=== PATIENT | male | born 1945 | race Caucasian/White ===

== ENCOUNTER 2020-02-25 09:39 | Outpatient (CLI) | payer MEDICARE, SELFPAY ==
--- NOTE | ~2020-02-25 | XR_ITS ---
XR hip RT min 3V w AP pelvis 02/25/2020 10:03 Indication: Right hip pain Procedure: 5 views right hip including AP pelvis Comparison: No prior studies for comparison. Findings: There is mild osteoarthritis of the right hip. There is a small bone island in the right il ium. There is mild lower lumbar spondylosis. Sacral foramen are symmetric. Pelvic rings are intact. Impression: 1: Mild osteoarthritis of the right hip. Reviewed, dictated and finalized at location B. Impression: 1: Mild osteoarthritis of the right hip.
== END 2020-02-25 09:40 | disposition home or self-care (01) ==
PROVIDERS: PCP Family Medicine; Visit Provider Family Medicine
DX: M16.11 Unilateral primary osteoarthritis, right hip (principal)
CPT/HCPCS: 73502

== ENCOUNTER 2022-04-08 08:29 | Outpatient (CLI) | payer MEDICARE, SELFPAY ==
[2022-04-08 19:29] LABS: Alanine Aminotransferase 26 U/L (6-50); Albumin Level 4.5 g/dL (3.5-5.1); Alkaline Phosphatase 78 U/L (38-126); Anion Gap 7 mmol/L (8-16); Aspartate Amino Transferase 36 U/L (17-59); Bilirubin,Total 0.8 mg/dL (0.2-1.3); Blood Urea Nitrogen 14 mg/dL (9-20); Calcium 9.4 mg/dL (8.4-10.2); Carbon Dioxide 31 mmol/L (22-30); Chloride 101 mmol/L (98-107); Cholesterol 164 mg/dL (0-200); Estimated Glomerular Filt Rate > 60; Glucose 110 mg/dL (65-110); HDL Direct 48 mg/dL; Potassium 4.7 mmol/L (3.4-5.0); Sodium 139 mmol/L (137-145); Triglycerides 132 mg/dL (<150)
[2022-04-08 19:40] LABS: LDL Cholesterol Direct 78 mg/dL
[2022-04-08 19:46] LABS: Vitamin D 25 Hydroxy 47.9 ng/mL
[2022-04-08 19:52] LABS: Prostate Specific Antigen 4.8 ng/mL (< OR = 4.0)
== END 2022-04-08 08:30 | disposition home or self-care (01) ==
LOC: ANHGOSHLAB 08:31
PROVIDERS: PCP Family Medicine; Visit Provider Family Medicine
DX: R20.2 Paresthesia of skin (principal); R20.0 Anesthesia of skin; Z13.29 Encounter for screening for other suspected endocrine disorder; Z12.5 Encounter for screening for malignant neoplasm of prostate; E78.5 Hyperlipidemia, unspecified; Z79.899 Other long term (current) drug therapy; E55.9 Vitamin D deficiency, unspecified
CPT/HCPCS: 36415; 80053; 80061; 82306; 84153; 84443; G0103

== ENCOUNTER → 2023-08-16 15:27 | Outpatient (CLI) | payer MEDICARE, SELFPAY ==
--- NOTE | ~2023-08-16 | XR_ITS ---
XR chest 2V DATE: 08/16/2023 15:38 INDICATION: Acute upper respiratory infection TECHNIQUE: PA and lateral views COMPARISON: 02/13/2014 CT chest high resolution scan 07/24/2009 two-view chest FINDINGS: Bilateral calcified pleural plaques consistent with prior asbestos exposure are again noted . There is infiltrate and/atelectasis in the lateral left mid-upper lung and left lower lung. Probable mild discoid scarring or atelectasis in the lung bases. Mild pleural thickening or pleural effusion and the lower right chest. Normal heart size. No hilar or mediastinal enlargement. No pneumothorax. 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 IMPRESSION: Bilateral calcified pleural plaques Mild infiltrate and/or atelectasis in the left mid and both lower lung zones Reviewed, dictated and finalized at location B. UATE NURSE
== END ==
PROVIDERS: PCP Family Medicine; Visit Provider Family Medicine
DX: J06.9 Acute upper respiratory infection, unspecified (principal); R91.8 Other nonspecific abnormal finding of lung field
CPT/HCPCS: 71046

== ENCOUNTER 2023-08-16 21:46 | Emergency (ER) | payer MEDICARE, SELFPAY ==
[2023-08-16 21:47] VITALS: BP 154/74; PULSE 104; RESP 20; TEMP 37.7; O2SAT 98
--- NOTE | 2023-08-16 23:07 | ECG_ITS ---
Measurements Intervals [place] Rate: 80 P: 22 SD: 137 QRS: -2 QRSD: 109 T: 42 QT: 391 QTc: 453 Interpretive Statements SINUS RHYTHM EARLY PRECORDIAL R/S TRANSITION BORDERLINE ECG NO PREVIOUS ECG AVAILABLE FOR COMPARISON Electronically Signed On 08-17-2023 6:51:55 [employer] by Karan Ruiz D.O.
[2023-08-16] MEDS: HYDROcodone/acetaminophen (*CRX) 5-325 MG TABLET 1 TAB PO (23:28)
[2023-08-16] MEDS: SODIUM CHLORIDE 0.9% IV 1,000 ML 999 ML IV CONT (23:29)
[2023-08-16 23:33] LABS: Basophils Percent Auto 0.2 % (0.2-1.2); Hematocrit 39.4 % (42.0-52.0); Hemoglobin 12.5 g/dL (14.0-18.0); Immature Granulocyte Absolute 0.02 K/mm3 (0.00-0.031); Immature Granulocyte Percent A 0.3 % (0-0.5); Immature Platelet Fraction Pct 4.8 % (0.9-11.2); Lymphocytes Absolute Auto 0.32 K/mm3 (0.9-3.2); Lymphocytes Percent Auto 5.2 % (18.3-44.2); Mean Corpuscular HGB Conc 31.7 g/dl (32-36); Mean Corpuscular Hemoglobin 29.9 pg (26-34); Mean Corpuscular Volume 94.3 fl (80-100); Mean Platelet Volume 10.6 fl (7.4-10.4); Monocytes Absolute Auto 0.9 K/mm3 (0.1-0.6); Monocytes Percent Auto 14.7 % (2.6-8.5); Neutrophils Absolute Auto 4.9 K/mm3 (1.3-6.7); Neutrophils Percent Auto 79.6 % (45.5-73.1); Platelet Count Result 124 k/mm3 (150-375); Red Blood Count 4.18 M/mm3 (4.6-6.20); Red Cell Distribution Width 12.9 % (11.5-14.5); White Blood Count 6.2 K/mm3 (4.5-10.0)
[2023-08-16 23:38] VITALS: BP 140/84; PULSE 78; RESP 15; O2SAT 98
[2023-08-16 23:52] LABS: Alanine Aminotransferase 31 U/L (6-50); Albumin Level 3.9 g/dL (3.5-5.1); Alkaline Phosphatase 78 U/L (38-126); Anion Gap 10 mmol/L (8-16); Aspartate Amino Transferase 31 U/L (17-59); Bilirubin,Total 0.4 mg/dL (0.2-1.3); Blood Urea Nitrogen 17 mg/dL (9-20); Calcium 8.9 mg/dL (8.4-10.2); Carbon Dioxide 25 mmol/L (22-30); Chloride 105 mmol/L (98-107); Estimated CRCL calculation 69 ml/min; Estimated Glomerular Filt Rate > 60; Glucose 129 mg/dL (65-110); Potassium 4.1 mmol/L (3.4-5.0); Sodium 140 mmol/L (137-145)
--- NOTE | 2023-08-17 00:04 | ED.URI ---
HPI - URI/Sore Throat General Chief Complaint: Upper Respiratory Infection Stated Complaint: uri Time Seen by Provider: 08/16/23 22:42 Source: patient and family Limitations: no limitations History of Present Illness HPI Narrative: Patient is a 77-year-old male presents to the emergency department accompanied by his and son for cough, fever. Patient states he developed a cough with a past approximately a 2 days that has been mostly nonproductive, was seen by his primary care physician earlier today and was prescribed benzonatate, albuterol, steroid taper and had a chest x-ray was performed and when they got the results he was called and told that a prescription for a Z-Jose was sent to the pharmacy and has not picked up the prescription yet. Patient admits to an isolated episode of nausea when he got home with an associated fever 4:00 p.m. that was 101 and he had just taken 2 Advil prior to the. Patient denies vomiting, diarrhea, sick contacts, dysuria, abdominal pain, chest pain, ear pain, numbness, weakness, rash, recent injuries, recent illness. Patient admits to being vaccinated for COVID-19 and influenza. Patient does admit to a couple days of nasal congestion for which he was taking DayQuil and NyQuil. Patient denies feeling short of breath but states that the cough is distressing him. Related Data Home Medications Medication Instructions Recorded Confirmed cinnamon bark 500 mg capsule 500 mg PO DAILY 06/26/19 04/04/22 multivitamin,mc-[id number]-[id number] 1 tablet PO DAILY 06/26/19 04/04/22 (Complete Multivitamin tablet) glucosamine HCl PO 04/07/20 04/04/22 simvastatin 40 mg tablet 40 mg PO QHS 04/04/22 04/04/22 Allergies Allergy/AdvReac Type Severity Reaction Status Date / Time No Known Allergies Allergy Verified 08/16/23 21:54 Review of Systems Review of Systems: A 10 system review of systems was completed on the patient and is negative except for what is stated in the HPI. Nursing and ancillary documentation was reviewed. [facility] Past Medical History Medical History Asbestosis Degenerative tear of acetabular labrum Dyslipidemia Erectile dysfunction GERD (gastroesophageal reflux disease) Hip flexor tendinitis Pilonidal cyst Vision abnormalities Surgical History Surgical History [place] teeth extracted Family History Family History Mother Asthma Diabetes mellitus Father Leukemia Acute myocardial infarction Heart disease Sibling Coronary artery disease Social History Social History Smoking status: Never smoker Second hand tobacco smoke exposure: No Alcohol intake: never Alcohol use details: Occasional Substance use: never Substance use type: does not use Living arrangements: with family Occupation/Education: retired Gender identity (if verbalized by the patient): Male Spiritual care concerns: Yes Comments At time of signature, I have reviewed and agree with nursing past medical, surgical, social and family history unless otherwise noted. Please see the nursing chart for further information. There is no relevant family history pertinent to the presenting complaint. Exam Narrative: CONST: No acute distress. Well nourished. Frequently coughing throughout examination that sounds dry. HENMT: Head is normocephalic and atraumatic. Tachy mucous membranes. No posterior oropharynx erythema. EYES: No conjunctival icterus, injection, or pallor. PERRL. NECK: No meningeal signs. No palpable cervical lymphadenopathy. RESP: Able to speak in full sentences. Normal respiratory effort. CTAB. CARDIO: Regular rate. Regular rhythm. 2+ DP and radial pulses bilaterally. GI: Nondistended. No tenderness to palpation. Soft. : No CVA tenderness to pa
[2023-08-17 00:08] LABS: Influenza A QL RT-PCR Negative (Negative); Influenza B QL RT-PCR Negative (Negative); RSV RNA, RT-PCR Negative (Negative); SARS-CoV-2 RNA PCR Positive (Negative)
[2023-08-17 00:22] LABS: Troponin I < 0.012 ng/mL (0.000-0.034)
== END 2023-08-17 01:11 | disposition home or self-care (01) ==
LOC: ANHED 08-17 00:57
PROVIDERS: Emergency Provider Student in an Organized Health Care Education/Training Program; PCP Family Medicine
DX: U07.1 COVID-19 (principal); R05.1 Acute cough; E78.5 Hyperlipidemia, unspecified
CPT/HCPCS: 36415; 80053; 83735; 84484; 85025; 85055; 87637; 93005; 96360; 99284; A9270; J7030

== ENCOUNTER 2024-08-20 08:00 | Outpatient (CLI) | payer MEDICARE, SELFPAY ==
--- OUTSIDE RECORDS SUMMARY | 2024-08-26 18:56 | XMS_ITS | Clinical Summary ---
Author Organization [facility] Address [address] [place] [address] Care Team Providers Care Infection Prevention Coordinator Name Role Phone Marni Altamirano MD Primary Care Provider Source Comments [facility],non-owned Affiliates and Associated Physician Practices is amultiple site organization consisting of ambulatory clinics and hospital sitesin [place], [place], [place] and [place]. This disclosure is being madepursuant to the Care Everywhere program and may not contain all information available regarding this patient. Last updated 18.[facility] Allergies No known active allergies Medications * Be aware that medications may not be up to date on this document. Alwaysverify current medications with the patient. Medication Sig Dispensed Refills Start Date End Date Status ibuprofen (Motrin) 600 MG tablet Take 1 (one) tablet by mouth every 6 hours as needed 06/17/2024 Active simvastatin (Zocor) 80 MG tablet Take 0.5 (one-half) tablet by mouth at bedtime 11/06/2023 Active Encounters Date Type Department Care Team Description 07/01/2024 1:20 PM CORPORATE LAW ASSISTANT Ancillary Procedure [facility] Orthopedics - Radiology [address] [place] [phone] Vijaya Shahid PA-C Pain of right hip 07/01/2024 1:00 PM CORPORATE LAW ASSISTANT Office Visit [facility] Orthoped[facility] [address] [place] [address], [address] [place] [phone] Vijaya Shahid PA-C Primary osteoarthritis of right hip (Primary Dx); Pain of right hip from Last 3 Months Social History Tobacco Use Types Packs/Day Years Used Date Smoking Tobacco: Never Assessed PHQ-2 Answer Date Recorded Patient Health Questionnaire-2 Score 0 07/01/2024 Sex and Gender Information Value Date Recorded Sex Assigned at Not on file Gender Identity Not on file Sexual Orientation Not on file Plan of Treatment Health Maintenance Due Date Last Done Comments MEDICARE AWV ? 12 MONTHS 1944 DTAP/TDAP/TD VACCINES (1 - Tdap) 1963 ZOSTER VACCINE (1 of 2) 1994 PNEUMOCOCCAL VACCINE 50+ (1 of 1 - PCV) 2009 Respiratory Syncytial Virus (RSV) Vaccine Pt: or over 60 yrs (1 - 1-dose 75+ series) 2019 COVID-19 VACCINE (2 - season) 2024 10/12/2020 DEPRESSION SCREENING 08/14/2024 07/01/2024 INFLUENZA VACCINE Completed 05/14/2024, , 06/19/2017, Additional history exists HEPATITIS B VACCINE Aged Out No longe r eligible based on patient's age to complete this topic HIB VACCINE Aged Out No longer eligi ble based on patient's age to complete this topic HPV VACCINE Aged Out No longer eligi ble based on patient's age to complete this topic MENINGOCOCCAL VACCINE Aged Out No jefry ruth eligible based on patient's age to complete this topic Procedures Procedure Name Priority Date/Time Associated Diagnosis Comments XR HIP RIGHT 2VW OR MORE Routine 07/01/2024 1:24 PM CORPORATE LAW ASSISTANT Pain of right hip from Last 3 Months Results * XR Hip Right 2Vw or More (07/01/2024 1:24 PM CORPORATE LAW ASSISTANT) Narrative [facility] [address] - 07/01/2024 1:25 PM CORPORATE LAW ASSISTANT Please see progress note in Epic for results. Vijaya Shahid PA-C DIAGNOSTIC IMAGING ORDERABLES [facility] [address] from Last 3 Months Care Teams Infection Prevention Coordinator Relationship Specialty Start Date End Date Marni Altamirano MD [address] [place] [address] PCP - General Family Medicine 07/01/24
--- OUTSIDE RECORDS SUMMARY | 2024-08-26 18:56 | XMS_ITS | Referral Summary ---
Author Organization [facility] Address [address] [place] [address] Care Team Providers Care Ham Curer Name Role Phone Marni Altamirano MD Primary Care Provider Source Comments [facility],non-owned Affiliates and Associated Physician Practices is amultiple site organization consisting of ambulatory clinics and hospital sitesin [place], [place], [place] and [place]. This disclosure is being madepursuant to the Care Everywhere program and may not contain all information available regarding this patient. Last updated 18.[facility] Encounters Date Type Department Care Team Description 07/01/2024 1:20 PM CUFF PRESSER Ancillary Procedure [facility] Orthopedics - Radiology [address] [place] [phone] Vijaya Shahid PA-C Pain of right hip 07/01/2024 1:00 PM CUFF PRESSER Office Visit [facility] Orthopedics [address] [place] [address], [address] [place] [phone] Vijaya Shahid PA-C Primary osteoarthritis of right hip (Primary Dx); Pain of right hip from Last 3 Months Allergies No known active allergies Medications * [...] tablet by mouth at bedtime 11/06/2023 Active Social History Tobacco Use Types Packs/Day Years Used Date Smoking Tobacco: Never Assessed PHQ-2 Answer Date Recorded Patient Health Questionnaire-2 Score 0 07/01/2024 Sex and Gender Information Value Date Recorded Sex Assigned at Not on file Gender Identity Not on file Sexual Orientation Not on file Plan of Treatment Not on file Procedures Procedure Name Priority Date/Time Associated Diagnosis Comments XR HIP RIGHT 2VW OR MORE Routine 07/01/2024 1:24 PM CUFF PRESSER Pain of right hip from Last 3 Months Results * XR Hip Right 2Vw or More (07/01/2024 1:24 PM CUFF PRESSER) Narrative [facility] [address] - 07/01/2024 1:25 PM CUFF PRESSER Please see progress note in Epic for results. Vijaya Shahid PA-C DIAGNOSTIC IMAGING ORDERABLES [facility] [place] [address] from Last 3 Months Care Teams Ham Curer Relationship Specialty Start Date End Date Marni Altamirano MD [address] [place] [address] PCP - General Family Medicine 07/01/24
--- OUTSIDE RECORDS SUMMARY | 2024-08-26 18:56 | XMS_ITS | Patient Health Summary ---
Author Organization [facility] Address [address] [place] [address] Care Team Providers Care Assembly Machine Tool Setter Name Role Phone Marni Altamirano MD Primary Care Provider Note from [facility],non-owned Affiliates and Associated Physician Practices is amultiple site organization consisting of ambulatory clinics and hospital sitesin [place], [place], [place] and [place]. This disclosure is being madepursuant to the Care Everywhere program and may not contain all information available regarding this patient. Last updated 18.[facility] Allergies No known active allergies Medications * Be aware that medications may not be up to date on this document. Alwaysverify current medications with the patient. * ibuprofen (Motrin) 600 MG tablet(Started 06/17/2024) Take 1 (one) tablet by mouth every 6 hours as needed * simvastatin (Zocor) 80 MG tablet(Started 11/06/2023) Take 0.5 (one-half) tablet by mouth at bedtime Social History Tobacco Use Types Packs/Day Years Used Date Smoking Tobacco: Never Assessed PHQ-2 Answer Date Recorded Patient Health Questionnaire-2 Score 0 07/01/2024 Sex and Gender Information Value Date Recorded Sex Assigned at Not on file Gender Identity Not on file Sexual Orientation Not on file Procedures * XR HIP RIGHT 2VW OR MORE(Performed 07/01/2024) Performed for Pain of right hip Results * XR Hip Right 2Vw or More (07/01/2024 1:24 PM INNER TUBE CUTTER) Narrative [facility] [address] - 07/01/2024 1:25 PM INNER TUBE CUTTER Please see progress note in Epic for results. Vijaya Shahid PA-C DIAGNOSTIC IMAGING ORDERABLES [facility] [address] Care Teams Assembly Machine Tool Setter Relationship Specialty Start Date End Date Marni Altamirano MD [address] [place] [address] PCP - General Family Medicine 07/01/24
--- OUTSIDE RECORDS SUMMARY | 2024-08-26 18:56 | XMS_ITS | Encounter Summary ---
Author Organization [facility] Address [address] [place] [address] Care Team Providers Care Manager Search Name Role Phone Marni Altamirano MD Primary Care Provider Encounter Details Date Type Department Care Team (Latest Contact Info) Description 07/01/2024 1:20 PM REGIONAL CONTROLLER Ancillary Procedure [facility] Orthopedics - Radiology [id number] [place] [phone] Vijaya Shahid PA-C [address] [place] [phone] Pain of right hip Social History Tobacco Use Types Packs/Day Years Used Date Smoking Tobacco: Never Assessed PHQ-2 Answer Date Recorded Patient Health Questionnaire-2 Score 0 07/01/2024 Sex and Gender Information Value Date Recorded Sex Assigned at Not on file Gender Identity Not on file Sexual Orientation Not on file documented as of this encounter Plan of Treatment Not on file documented as of this encounter Procedures Procedure Name Priority Date/Time Associated Diagnosis Comments XR HIP RIGHT 2VW OR MORE Routine 07/01/2024 1:24 PM REGIONAL CONTROLLER Pain of right hip documented in this encounter Results * XR Hip Right 2Vw or More (07/01/2024 1:24 PM REGIONAL CONTROLLER) Narrative [facility] [place] [address] - 07/01/2024 1:25 PM REGIONAL CONTROLLER Please see progress note in Epic for results. Vijaya Shahid PA-C DIAGNOSTIC IMAGING ORDERABLES [facility] [address] documented in this encounter Visit Diagnoses Diagnosis Pain of right hip documented in this encounter Care Teams Manager Search Relationship Specialty Start Date End Date Marni Altamirano MD [address] [facility] [address] [place] [address] PCP - General Family Medicine 07/01/24 documented as of this encounter
--- OUTSIDE RECORDS SUMMARY | 2024-08-26 18:56 | XMS_ITS | Encounter Summary ---
Author Organization [facility] Address [address] [place] [address] [place] [address] Care Team Providers Care Spine Specialist Name Role Phone Marni Altamirano MD Primary Care Provider Reason for Visit * Reason Comments Establish Care New patient// rt hip pain// xrays taken Encounter Details Date Type Department Care Team (Latest Contact Info) Description 07/01/2024 1:00 PM REGIONAL CLINICAL RESEARCH ASSOCIATE Office Visit [facility] Orthopedics [id number] [place] [phone] Vijaya Shahid PA-C [id number] [place] [phone] Primary osteoarthritis of right hip (Primary Dx); Pain of right hip Social History Tobacco Use Types Packs/Day Years Used Date Smoking Tobacco: Never Assessed PHQ-2 Answer Date Recorded Patient Health Questionnaire-2 Score 0 07/01/2024 Sex and Gender Information Value Date Recorded Sex Assigned at Not on file Gender Identity Not on file Sexual Orientation Not on file documented as of this encounter Progress Notes * Vijaya Shahid PA-C - 07/02/2024 10:44 AM CST PATIENT NAME: Valentina Castañeda CHIEF COMPLAINT: 1) Right hip pain HISTORY OF PRESENT ILLNESS: HPI: Valentina Castañeda is a 78 year old male who presents complaining of right hip pain. He states his symptoms were present for approximately 6 weeks. They have since resolved. He denies any specific injury. He is currently ambulating without assistive device. Denies any radicular symptoms. Patient is quite active. In the past. 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 the Patient is currently taking ibuprofen as needed. His is in attendance. The patient presents for evaluation and management of this problem. REVIEW OF SYSTEMS: negative except right hip pain PAST MEDICAL HISTORY: No past medical history on file. PAST SURGICAL HISTORY: No past surgical history on file. CURRENT MEDICATIONS: Current Outpatient Medications on File Prior to Visit Medication Sig Dispense Refill ibuprofen (Motrin) 600 MG tablet Take 1 (one) tablet by mouth every 6 hours as needed simvastatin (Zocor) 80 MG tablet Take 0.5 (one-half) tablet by mouth at bedtime No current facility-administered medications on file prior to visit. ALLERGIES: No Known Allergies SOCIAL HISTORY: PHYSICAL EXAMINATION: .Vital Signs: There were no vitals taken for this visit. There is no height or weight on file to calculate BMI. GENERAL: Valentina Castañeda is a 78 year old male in no distress. The patient is alert and oriented with normal mood and affect, and can ambulate with a normal gait. Physical Exam: Examination of the right hip reveals no palpable groin tenderness. There is 5/5 motor strength with resisted hip abduction/adduction and hip flexion. Neurovascularly intact. Negative Lymphdema. Dorsal pedal pulses intact. No distal lower extremity skin color changes consistent with peripheral vascular disease are present. HIP RANGE OF MOTION: Right/left External Rotation: 40/45 Internal Rotation: 20/20 Hip Flexion: 115/115 Hip Abduction: 50/50 Examination of the left hip reveals no pain. Painless passive hip range of motion. There is 5/5 motor strength with resisted hip abduction/adduction and hip flexion. Neurovascularly intact. Negative Lymphdema. Dorsal pedal pulses intact. No distal lower extremity skin color changes consistent with peripheral vascular disease are present. Radiographs: AP pelvis and lateral views of the right hip reveal mild femoral acetabular joint space interval with asymmetry of his femoral head . Mild subchondral sclerosis. IMPRESSION: Right hip pain Mild Right hip primary osteoarthritis, currently asymptomatic TREATMENT PLAN: After reviewing the options with the patient, the plan is to proceed with conservative management low-impact exercise walking, stationary bike and aquatic exercise. He can use an assistive device as needed. He will follow his primary care physician's instructions regarding NSAIDs. Briefly discussedintra-articular cortisone injections, but he is asymptomatic to defer at this time. ONAL CLINICAL RESEARCH ASSOCIATE * Gillian Cash MA - 07/01/2024 1:18 PM CST New patient// rt hip pain// xrays taken ONAL CLINICAL RESEARCH ASSOCIATE documented in this encounter Plan of Treatment Not on file documented as of this encounter Results * XR Hip Right 2Vw or More (07/01/2024 1:24 PM REGIONAL CLINICAL RESEARCH ASSOCIATE) Narrative [facility] [address] - 07/01/2024 1:25 PM REGIONAL CLINICAL RESEARCH ASSOCIATE Please see progress note in Epic for results. Vijaya Shahid PA-C DIAGNOSTIC IMAGING ORDERABLES [facility] [address] documented in this encounter Visit Diagnoses Diagnosis Primary osteoarthritis of right hip- Primary Primary localized osteoarthrosis, pelvic region and thigh Pain of right hip Pain of right hip documented in this encounter Care Teams Spine Specialist Relationship Specialty Start Date End Date Marni Altamirano MD [address] [facility] [address] [address] PCP - General Family Medicine 07/01/24 documented as of this encounter
--- NOTE | 2024-09-03 13:35 | WPDSLEEPSTUD ---
Sleep Study Date of Study: 08/20/24 Ordering Provider: Karan Ruiz DO Interpreting Physician: Sue Mckeon DO Sleep Study Type: Polysomnogram Height: 1.88 m Weight: 104.326 kg Body Mass Index: 29.5 Neck Circumference (inches): 18.5 [place]: 7 Reason for Sleep Study snoring, witnessed apneas Sleep History The patient is a 78-year-old male that had a sleep study ordered by his systems integration analyst for evaluation of sleep apnea. The patient denies awakening from sleep short of breath. He denies awakening at night with heartburn, belching or cough. He denies snoring. He denies having trouble sleeping when he has a cold. He denies waking up gasping for air throughout the night. He denies having breathing problems at night observed by himself or others. He denies sweating excessively at night. He denies having heart palpitations or irregular heartbeats during the night. He denies falling asleep during the day and while driving. He denies sleep paralysis, cataplexy and hypnagogic / hypnopompic hallucinations. He denies having trouble at school or work due to sleepiness. He denies feeling afraid of going to sleep. He denies having nightmares. He occasionally remembers his dreams. He occasionally has thoughts racing through his mind. He denies feeling sad or depressed. He rarely has anxiety. He denies having muscular tension. He denies noticing parts of his body jerk. He denies kicking during the night. He denies having crawling and aching feelings in his legs and denies having leg pain during the night. He denies grinding his teeth during sleep and denies awakening with morning jaw pain. He is rarely bothered by pain during the day and never awakened by pain during the night. He denies waking up feeling stiff in the morning. He denies waking up with sore or achy muscles. He denies waking up with pain in the neck, spine and other joints. He goes to bed at 10:30 p.m. on weekdays and weekends. It takes him 15 minutes to fall asleep. He wakes up once throughout the night to adjust position and is able to fall back asleep relatively quickly. He wakes up at 7:30 a.m. on both weekdays and weekends. He typically gets 8 hours of sleep he will stay in bed for 10 minutes after waking up in the morning. He currently lives with his . He denies consuming any caffeinated beverages within 2 hours of bedtime. He denies engaging in physical exercise before bedtime. He denies reading and watching television before falling asleep. He denies taking naps in the afternoon or the evening. He consumes 2 cups of coffee per day. He denies alcohol and recreational drug use. [facility] Past Medical History Medical History Chronic venous insufficiency of lower extremity Vision abnormalities Hip flexor tendinitis Degenerative tear of acetabular labrum Dyslipidemia Erectile dysfunction Pilonidal cyst Asbestosis GERD (gastroesophageal reflux disease) Surgical History Surgical History Roe teeth extracted Family History Family History Mother Asthma Diabetes mellitus Father Leukemia Acute myocardial infarction Heart disease Sibling Coronary artery disease Social History Social History Smoking status: Never smoker Second hand tobacco smoke exposure: No Alcohol intake: never Alcohol use details: Occasional Substance use: never Substance use type: does not use Living arrangements: with family Occupation/Education: retired Gender identity (if verbalized by the patient): Male Spiritual care concerns: Yes Agree to blood products: Yes Medications Home Medications ?Medication ?Instructions ?Recorded ?Confirmed ?Type cinnamon bark 500 mg capsule 500 mg PO DAILY 06/26/19 07/09/24 History multivitamin,hs-njfc-sflzznox 1 tablet PO DAILY 06/26/19 07/09/24 History (Complete Multivitamin tablet) glucosamine HCl PO 04/07/20 07/09/24 History simvastatin 40 mg tablet 40 mg PO QHS 04/04/22 07/09/24 History cholecalciferol (vitamin D3) 125 125 mcg PO DAILY 06/12/24 07/09/24 History mcg (5,000 unit) capsule Sleep Procedure A full night polysomnogram using the Cadent multi-channel system recorded the standard physiologic parameters including EEG, EOG, submentalis EMG, anterior tibialis EMG, EKG, body position, nasal and oral airflow using nasal pressure sensor and thermistor.? Respiratory parameters of chest and abdominal movements were recorded with Respiratory Inductance Plethysmography belts. Oxygen saturation was recorded by pulse oximetry. Video monitoring was also performed. Sleep stages, periodic limb movements, and EEG arousals were scored in 30 second epochs according to the criteria of the AASM Scoring Manual. The Apnea-Hypopnea Index was calculated using [facility] guidelines for definition of hypopnea with 4% O2 desaturations while scoring respiratory events. Sleep Architecture The total recording time was 435.7 minutes.? The total sleep time was 333.5 minutes. Sleep latency was 14.5 minutes. REM latency was 60.0 minutes. Sleep efficiency was 76.5%. The patient had 26 awakenings for an awakening index of 4.7. Wake after sleep onset time was 88.0 minutes. The patient spent 61.0 minutes, 18.3% of total sleep time in Stage N1. The patient spent 205.0 minutes, 61.5% in Stage N2. The patient spent 0.0 minutes, 0.0% in Stage N3. The patient spent 67.5 minutes, 20.2% in Stage REM sleep. Respiratory Analysis The patient had 12 hypopneas, 36 obstructive apneas, 2 mixed apneas, and 7 central apneas for an overall Apnea Hypopnea Index of 10.3. The REM Apnea Hypopnea Index was 48.9. The NREM Apnea Hypopnea Index was 2.7. The patient had a Central Apnea Hypopnea Index of 1.3. There was no evidence of [place] Respirations. Arousals There were 100 total arousals for an arousal index of 18.0. There were 39 spontaneous arousals for an index of 7.0. There were 12 arousals due to respiratory events for an index of 2.2. There were 42 arousals due to periodic limb movements for an index of 7.6.? There were 9 arousals due to isolated limb movements for an index of 1.6. Periodic Limb Movements The patient had 11 isolated limb movements with an index of 2.0. The patient had 590 periodic limb movements with an index of 106.1, which is elevated (normal < 5). Patient had a total of 601 limb movements with a total limb movement index of 108.1. Oximetry Data The patient had an average oxygen saturation of 94.3% in sleep with a minimum oxygen saturation of 82.0% and a maximum oxygen saturation of 98.0%. The patient had 46 oxygen desaturations that were 4% or greater resulting in an Oxygen Desaturation Index of 8.3.? The patient spent 1.7 minutes, 0.4% of total sleep time with an oxygen saturation below 88%. Snoring Profile Mild to moderate snoring was present throughout the study. Cardiac Profile The EKG showed normal sinus rhythm. No arrhythmias or PVCs were seen. The patient had an average pulse rate of 63.9 bpm with a minimum pulse of rate of 46.0 bpm and a maximum pulse rate of 91.0 bpm.? EEG Profile No signs of seizure activity seen. Assessment and Plan Assessment and Plan (1) SAMANTHA (obstructive sleep apnea): Code(s): G47.33 - Obstructive sleep apnea (adult) (pediatric) Status: Acute Assessment and Plan: The patient had an overall AHI of 10.3 with desaturation down to 82%. This is consistent with mild sleep apnea. Due to the patient's cardiac arrhythmias, he qualifies for treatment. I recommend that the patient have a CPAP Titration study with the use of a hypnotic to ensure we obtain enough sleep data and find an optimal pressure setting. (2) PLMD (periodic limb movement disorder): Code(s): G47.61 - Periodic limb movement disorder Status: Acute Assessment and Plan: The patient had a significant number of limb movements during the study with the majority being periodic in nature. The patient's sleep history does not suggest Restless Leg Syndrome. I recommend that the patient have a serum ferritin drawn for evaluation of iron deficiency anemia. If the patient has a serum ferritin less than 75 ng/mL, I recommend starting a daily iron supplement and a Vitamin C supplement for better absorption. If the serum ferritin is greater than 75 ng/mL, I recommend starting a dopamine agonist and titrating the dose until symptoms resolve. There are nonpharmacological methods to treat limb movements including daily exercise, stretching calf muscles before bed, avoiding excessive amounts of caffeine and alcohol, vitamin B supplementation, magnesium lotion massaged into legs before bed, and use of a weighted blanket. Data The data obtained during this sleep study is adequate for interpretation. Certification This sleep study has been reviewed by a board certified sleep medicine physician.
[2024-09-04 13:01] VITALS: BMI 29.5
== END 2024-08-21 06:32 | disposition home or self-care (01) ==
LOC: ANHCSM 08:00
PROVIDERS: PCP Family Medicine; Visit Provider Internal Medicine Cardiovascular Disease
DX: G47.33 Obstructive sleep apnea (adult) (pediatric) (principal); G47.61 Periodic limb movement disorder; G47.10 Hypersomnia, unspecified
CPT/HCPCS: 95810

== ENCOUNTER 2024-11-06 08:20 | Outpatient (CLI) | payer MEDICARE, SELFPAY ==
--- OUTSIDE RECORDS SUMMARY | 2024-11-06 08:30 | XMS_ITS | Clinical Summary ---
Author Organization [email or web address] Address [address] [place] [address] Care Team Providers Care Underlay Stitcher Name Role Phone Marni Altamirano MD Primary Care Provider Source Comments [email or web address],non-owned Affiliates and Associated Physician Practices is amultiple site organization consisting of ambulatory clinics and hospital sitesin [place], [place], [place] and [place]. This disclosure is being madepursuant to the Care Everywhere program and may not contain all information available regarding this patient. Last updated 18.[email or web address] Allergies No known active allergies Medications * [...] Due Date Last Done Comments MEDICARE AWV 12 MONTHS 1944 DTAP/TDAP/TD VACCINES (1 - Tdap) 1963 PNEUMOCOCCAL VACCINE 50+ (1 of 1 - PCV) 1994 ZOSTER VACCINE (1 of 2) 1994 Respiratory Syncytial Virus (RSV) Vaccine Pt: or over 60 yrs (1 - 1-dose 75+ series) 2019 COVID-19 VACCINE ( season) 2024 10/12/2020 DEPRESSION SCREENING 08/14/2024 07/01/2024 [...] patient's age to complete this topic MENINGOCOCCAL (Group B) VACCINE SHARED DECISION-MAKING Aged Out No longer eligible based on patient's age to complete this topic MENINGOCOCCAL GROUPS A/C/Y/W VACCINE Aged Out No longer eligible based on patient's age to complete this topic Care Teams Underlay Stitcher Relationship Specialty Start Date End Date Marni Altamirano MD [facility] [facility] [address] [place] [address] PCP - General Family Medicine 07/01/24
[2024-11-06 18:46] LABS: Basophils Percent Auto 0.4 % (0.2-1.2); Hematocrit 42.8 % (42.0-52.0); Hemoglobin 13.6 g/dL (14.0-18.0); Immature Granulocyte Absolute 0.01 K/mm3 (0.00-0.031); Immature Granulocyte Percent A 0.2 % (0-0.5); Lymphocytes Percent Auto 23.8 % (18.3-44.2); Mean Corpuscular HGB Conc 31.8 g/dl (32-36); Mean Corpuscular Hemoglobin 30.2 pg (26-34); Mean Corpuscular Volume 94.9 fl (80-100); Mean Platelet Volume 11.1 fl (7.4-10.4); Monocytes Absolute Auto 0.6 K/mm3 (0.1-0.6); Neutrophils Absolute Auto 2.9 K/mm3 (1.3-6.7); Neutrophils Percent Auto 62.6 % (45.5-73.1); Platelet Count Result 156 k/mm3 (150-375); Red Blood Count 4.51 M/mm3 (4.6-6.20); Red Cell Distribution Width 13.1 % (11.5-14.5); White Blood Count 4.6 K/mm3 (4.5-10.0)
[2024-11-06 19:03] LABS: Alanine Aminotransferase 27 U/L (6-50); Albumin Level 4.2 g/dL (3.5-5.1); Alkaline Phosphatase 73 U/L (38-126); Anion Gap 8 mmol/L (4-12); Aspartate Amino Transferase 37 U/L (17-59); Bilirubin,Total 0.8 mg/dL (0.2-1.3); Blood Urea Nitrogen 12 mg/dL (9-20); Calcium 9.1 mg/dL (8.4-10.2); Carbon Dioxide 30 mmol/L (22-30); Chloride 103 mmol/L (98-107); Cholesterol 148 mg/dL (0-200); Estimated Glomerular Filt Rate > 60; Glucose 89 mg/dL (65-110); HDL Direct 45 mg/dL; Potassium 4.1 mmol/L (3.4-5.0); Sodium 141 mmol/L (137-145); Triglycerides 102 mg/dL (<150)
[2024-11-06 19:30] LABS: LDL Cholesterol Direct 73 mg/dL
[2024-11-06 20:13] LABS: Vitamin D 25 Hydroxy 47.8 ng/mL
[2024-11-06 21:37] LABS: Hemoglobin A1C 5.6 % (<5.7)
== END 2024-11-06 08:21 | disposition home or self-care (01) ==
LOC: ANHGOSHLAB 08:21
PROVIDERS: PCP Family Medicine; Visit Provider Family Medicine
DX: E78.5 Hyperlipidemia, unspecified (principal); I10 Essential (primary) hypertension; E55.9 Vitamin D deficiency, unspecified; R73.03 Prediabetes; E53.8 Deficiency of other specified B group vitamins; I49.8 Other specified cardiac arrhythmias; R94.31 Abnormal electrocardiogram [ECG] [EKG]; I49.1 Atrial premature depolarization; D64.9 Anemia, unspecified
CPT/HCPCS: 36415; 80053; 80061; 82306; 82607; 82728; 83036; 84443; 85025

== ENCOUNTER 2025-07-08 15:44 | Emergency (ER) | payer MEDICARE, SELFPAY ==
--- NOTE | 2025-07-08 15:50 | ED.RECABL ---
HPI - Recheck/Abnormal Lab/Rx General Chief Complaint: Recheck/Abnormal Lab/Rx <Silvia Hand PA-C - Last Filed: 07/10/25 17:09> Stated Complaint: ABNORMAL LAB WORK <Silvia Hand PA-C - Last Filed: 07/10/25 17:09> Time Seen by Provider: 07/08/25 15:50 <Silvia Hand PA-C - Last Filed: 07/10/25 17:09> Focused HPI: This is a 79 year old male that presents to the ER for abnormal outpatient bloodwork. Patient is unsure what is abnormal. Does report he has had increased thirst, urination. GENERAL: Well-appearing, well-nourished, and in no acute distress. HEAD: Normocephalic, atraumatic. CHEST: Clear to auscultation. ?No respiratory distress. HEART: Regular rate and rhythm.? NEURO: ?Alert and oriented x3. Patient screened in triage and initial orders placed.? ?Additional care and disposition to be based upon?diagnostic testing and treatment. <Silvia Hand PA-C - Last Filed: 07/10/25 17:09> History of Present Illness HPI narrative: Agree with the HPI above <Eugenio Antony MD - Last Filed: 07/09/25 03:29> Related Data Home Medications: Home Medications ?Medication ?Instructions ?Recorded ?Confirmed ?Last Taken ?Type cinnamon bark 500 mg capsule 500 mg PO DAILY 06/26/19 07/08/25 Unknown History multivitamin,[id number] 1 tablet PO DAILY 06/26/19 07/08/25 Unknown History (Complete Multivitamin tablet) simvastatin 40 mg tablet 40 mg PO QHS 04/04/22 07/08/25 Unknown History cholecalciferol (vitamin D3) 125 125 mcg PO DAILY 06/12/24 07/08/25 Unknown History mcg (5,000 unit) capsule glucosamine HCl 1 tablet PO DAILY 10/29/24 07/08/25 Unknown History melatonin 10 mg tablet 10 mg PO QHS 10/29/24 07/08/25 Unknown History <Silvia Hand PA-C - Last Filed: 07/10/25 17:09> Allergies/Adverse Reactions: Allergies Allergy/AdvReac Type Severity Reaction Status Date / Time No Known Allergies Allergy Verified 07/08/25 15:45 <Silvia Hand PA-C - Last Filed: 07/10/25 17:09> Review of Systems Review of Systems: as reviewed above in HPI <Eugenio Antony MD - Last Filed: 07/09/25 03:29> All systems reviewed & are unremarkable except as noted in HPI and below <Eugenio Antony MD - Last Filed: 07/09/25 03:29> [facility] Past Medical History Medical History: Medical History Elevated PSA SAMANTHA (obstructive sleep apnea) Prediabetes Chronic venous insufficiency of lower extremity Vision abnormalities Hip flexor tendinitis Degenerative tear of acetabular labrum Dyslipidemia Erectile dysfunction Pilonidal cyst Asbestosis GERD (gastroesophageal reflux disease) <Silvia Hand PA-C - Last Filed: 07/10/25 17:09> Surgical History Surgical History: Surgical History S/P right cataract extraction 2024 History of eye surgery (~1988) left eye foreign body(metal) removal History of excision of pilonidal cyst (~1981) S/P cataract surgery (~09/2024) left eye [place] teeth extracted (~1984) <Silvia Hand PA-C - Last Filed: 07/10/25 17:09> Family History Family History: Family History Mother Asthma Diabetes mellitus Father Leukemia Acute myocardial infarction Heart disease Sibling Coronary artery disease <Silvia Hand PA-C - Last Filed: 07/10/25 17:09> Social History Social History: Social History Smoking status: Never smoker Second hand tobacco smoke exposure: No Alcohol intake: never Alcohol use details: Occasional Substance use: never Substance use type: does not use Living arrangements: with family Occupation/Education: retired Gender identity (if verbalized by the patient): Male Spiritual care concerns: Yes Agree to blood products: Yes <Silvia Hand PA-C - Last Filed: 07/10/25 17:09> Exam Narrative: GENERAL: [Well-appearing, well-nourished, and in no acute distress.] HEAD: [Normocephalic, atraumatic.] EYES: [PERRLA and EOMI.] ENT: Nares clear, no rhinorrhea or epistaxis. Mucous membranes moist. NECK: Supple. CHEST: [Clear to auscultation. No respiratory distress.] HEART: [Regular rate and rhythm]. No murmur heard. [Normal peripheral pulses.] ABDOMEN: [Soft, nondistended], [nontender], [No rigidity or guarding] EXTREMITIES: Normal range of motion. [No edema.] SKIN: Warm, dry, no rash. NEURO: [No focal deficits]. Alert and oriented [x3.] PSYCH: [Normal mood and affect.] <Eugenio Antony MD - Last Filed: 07/09/25 03:29> Course Vital Signs Vital signs: Vital Signs Temperature 98.1 F 07/08/25 15:51 Pulse Rate 72 07/08/25 15:51 Respiratory Rate 18 07/08/25 15:51 Blood Pressure 191/82 H 07/08/25 15:51 Oxygen Delivery Room Air 07/08/25 15:51 Temperature 98.1 F 07/08/25 15:51 Pulse Rate 72 07/08/25 19:01 Respiratory Rate 17 07/08/25 19:01 Blood Pressure 170/72 H 07/08/25 19:01 Pulse Oximetry 100 07/08/25 19:01 Oxygen Delivery Room Air 07/08/25 18:21 <Silvia Hand PA-C - Last Filed: 07/10/25 17:09> Vital Signs Temperature 98.1 F 07/08/25 15:51 Pulse Rate 72 07/08/25 15:51 Respiratory Rate 18 07/08/25 15:51 Blood Pressure 191/82 H 07/08/25 15:51 Oxygen Delivery Room Air 07/08/25 15:51 Temperature 98.1 F 07/08/25 15:51 Pulse Rate 72 07/08/25 19:01 Respiratory Rate 17 07/08/25 19:01 Blood Pressure 170/72 H 07/08/25 19:01 Pulse Oximetry 100 07/08/25 19:01 Oxygen Delivery Room Air 07/08/25 18:21 <Eugenio Antony MD - Last Filed: 07/09/25 03:29> MDM - Recheck/Abnormal Lab/Rx MDM Narrative Medical decision making narrative: 79-year-old male presenting with abnormal outside hospital lab work. Patient has no complaints. Patient has no symptoms at this time aside from some increased polyuria and polydipsia. Prediabetic per review of history. Patient denies any complaints of nausea, vomiting, fever, chills, back pain, chest pain, shortness a breath. Review of labs that were obtained yesterday at routine once yearly exam showed an elevated creatinine from his baseline and signs of dehydration with mildly elevated sodium, chloride and creatinine. Patient has no symptoms. Repeat laboratory studies here showed improvement in creatinine from the reported level yesterday and normalization of his electrolytes. Likely dehydration and secondary to his prediabetes given the complaint of polyuria. Laboratory studies and urinalysis ordered. Patient given hydration and will be discharged with primary care provider follow-up given he is asymptomatic and does not require hospitalization. Repeat BMP shows improvement in creatinine after fluids. A1c mildly elevated. Will follow-up outpatient and maintain hydration. <Eugenio Antony MD - Last Filed: 07/09/25 03:29> Medical Records Attestation: I reviewed the patient's medical records. <Eugenio Antony MD - Last Filed: 07/09/25 03:29> Lab Data Attestation: I reviewed the patient's lab results. <Eugenio Antony MD - Last Filed: 07/09/25 03:29> Result diagrams: 07/08/25 16:26 07/08/25 21:19 <Silvia Hand PA-C - Last Filed: 07/10/25 17:09> Labs: Lab Results 07/08/25 07/08/25 07/08/25 Range/Units 16:25 16: 16: WBC 6.4 (4.5-10.0) K/mm3 RBC 3.83 L (4.6-6.20) M/mm3 Hgb 12.0 L (14.0-18.0) g/dL Hct 36.5 L (42.0-52.0) % MCV 95.3 (80-100) fl MCH 31.3 (26-34) pg MCHC 32.9 (32-36) g/dl RDW 13.2 (11.5-14.5) % Plt Count 184 (150-375) k/mm3 MPV 10.2 (7.4-10.4) fl Immature Gran % (Auto) 0.3 (0-0.5) % Neut % (Auto) 68.8 (45.5-73.1) % Lymph % (Auto) 16.2 L (18.3-44.2) % Gilliam % (Auto) 11.7 H (2.6-8.5) % Eos % (Auto) 2.7 (0-4.4) % Baso % (Auto) 0.3 (0.2-1.2) % Lymph # (Auto) 1.03 (0.9-3.2) K/mm3 Gilliam # (Auto) 0.7 H (0.1-0.6) K/mm3 Eos # (Auto) 0.2 (0-0.3) K/mm3 Baso # (Auto) 0.0 (0.0-0.1) K/mm3 Abs Immat Gran (auto) 0.02 (0.00-0.031) K/mm3 Absolute Neuts (auto) 4.4 (1.3-6.7) K/mm3 Absolute Nucleated RBC 0.000 (0.0-0.012) K/mm3 Nucleated RBC % 0.0 (0.0-0.2) % Sodium 142 (137-145) mmol/L Potassium 4.5 (3.4-5.0) mmol/L Chloride 105 (98-107) mmol/L Carbon Dioxide 29 (22-30) mmol/L Anion Gap 8 (4-12) mmol/L BUN 25 H D (9-20) mg/dL Creatinine 2.11 H (0.7-1.3) mg/dL Estim Creat Clear Calc 30 ml/min Estimated GFR 30 L (59 - ) Glucose 102 (65-110) mg/dL Hemoglobin A1c 5.8 H (<5.7) % Calcium 9.1 (8.4-10.2) mg/dL Magnesium 2.3 Cancelled (1.6-2.3) mg/dL Total Bilirubin 0.5 (0.2-1.3) mg/dL AST 33 (17-59) U/L ALT 23 (6-50) U/L Alkaline Phosphatase 83 (38-126) U/L Total Protein 7.6 (6.3-8.2) g/dL Albumin 4.6 (3.5-5.1) g/dL Urine Color Yellow (Yellow) Urine Appearance Clear (Clear) Urine pH 7.0 (5.0-9.0) Ur Specific [place] 1.009 (1.001-1.035) Urine Protein Negative (Negative) mg/dL Urine Glucose (UA) Negative (Negative) mg/dL Urine Ketones Negative (Negative) mg/dL Ur Blood (Man) Negative (Negative) Urine Nitrate Negative (Negative) Urine Bilirubin Negative (Negative) Urine Urobilinogen 0.2 (<2.0) mg/dL Leukocyte Esterase Rfl Trace H (Negative) DEUCE/UL Urine RBC 0-2 (0-2) /hpf Urine WBC 0-5 (0-3) /hpf Ur Squamous Epith Cells None seen (Few) /hpf Urine Bacteria None seen /hpf Urine Casts 0-2 07/08/ Range/Units 21:19 WBC (4.5-10.0) K/mm3 RBC (4.6-6.20) M/mm3 Hgb (14.0-18.0) g/dL Hct (42.0-52.0) % MCV (80-100) fl MCH (26-34) pg MCHC (32-36) g/dl RDW (11.5-14.5) % Plt Count (150-375) k/mm3 MPV (7.4-10.4) fl Immature Gran % (Auto) (0-0.5) % Neut % (Auto) (45.5-73.1) % Lymph % (Auto) (18.3-44.2) % Gilliam % (Auto) (2.6-8.5) % Eos % (Auto) (0-4.4) % Baso % (Auto) (0.2-1.2) % Lymph # (Auto) (0.9-3.2) K/mm3 Gilliam # (Auto) (0.1-0.6) K/mm3 Eos # (Auto) (0-0.3) K/mm3 Baso # (Auto) (0.0-0.1) K/mm3 Abs Immat Gran (auto) (0.00-0.031) K/mm3 Absolute Neuts (auto) (1.3-6.7) K/mm3 Absolute Nucleated RBC (0.0-0.012) K/mm3 Nucleated RBC % (0.0-0.2) % Sodium 140 (137-145) mmol/L Potassium 4.3 (3.4-5.0) mmol/L Chloride 105 (98-107) mmol/L Carbon Dioxide 31 H (22-30) mmol/L Anion Gap 4 (4-12) mmol/L BUN 23 H (9-20) mg/dL Creatinine 2.01 H (0.7-1.3) mg/dL Estim Creat Clear Calc 31 ml/min Estimated GFR 32 L (59 - ) Glucose 101 (65-110) mg/dL Hemoglobin A1c (<5.7) % Calcium 8.8 (8.4-10.2) mg/dL Magnesium (1.6-2.3) mg/dL Total Bilirubin (0.2-1.3) mg/dL AST (17-59) U/L ALT (6-50) U/L Alkaline Phosphatase (38-126) U/L Total Protein (6.3-8.2) g/dL Albumin (3.5-5.1) g/dL Urine Color (Yellow) Urine Appearance (Clear) Urine pH (5.0-9.0) Ur Specific [place] (1.001-1.035) Urine Protein (Negative) mg/dL Urine Glucose (UA) (Negative) mg/dL Urine Ketones (Negative) mg/dL Ur Blood (Man) (Negative) Urine Nitrate (Negative) Urine Bilirubin (Negative) Urine Urobilinogen (<2.0) mg/dL Leukocyte Esterase Rfl (Negative) DEUCE/UL Urine RBC (0-2) /hpf Urine WBC (0-3) /hpf Ur Squamous Epith Cells (Few) /hpf Urine Bacteria /hpf Urine Casts <Silvia Hand PA-C - Last Filed: 07/10/25 17:09> Lab Results 07/08/25 07/08/25 07/08/25 Range/Units 16:25 16:26 16:26 WBC 6.4 (4.5-10.0) K/mm3 RBC 3.83 L (4.6-6.20) M/mm3 Hgb 12.0 L (14.0-18.0) g/dL Hct 36.5 L (42.0-52.0) % MCV 95.3 (80-100) fl MCH 31.3 (26-34) pg MCHC 32.9 (32-36) g/dl RDW 13.2 (11.5-14.5) % Plt Count 184 (150-375) k/mm3 MPV 10.2 (7.4-10.4) fl Immature Gran % (Auto) 0.3 (0-0.5) % Neut % (Auto) 68.8 (45.5-73.1) % Lymph % (Auto) 16.2 L (18.3-44.2) % Gilliam % (Auto) 11.7 H (2.6-8.5) % Eos % (Auto) 2.7 (0-4.4) % Baso % (Auto) 0.3 (0.2-1.2) % Lymph # (Auto) 1.03 (0.9-3.2) K/mm3 Gilliam # (Auto) 0.7 H (0.1-0.6) K/mm3 Eos # (Auto) 0.2 (0-0.3) K/mm3 Baso # (Auto) 0.0 (0.0-0.1) K/mm3 Abs Immat Gran (auto) 0.02 (0.00-0.031) K/mm3 Absolute Neuts (auto) 4.4 (1.3-6.7) K/mm3 Absolute Nucleated RBC 0.000 (0.0-0.012) K/mm3 Nucleated RBC % 0.0 (0.0-0.2) % Sodium 142 (137-145) mmol/L Potassium 4.5 (3.4-5.0) mmol/L Chloride 105 (98-107) mmol/L Carbon Dioxide 29 (22-30) mmol/L Anion Gap 8 (4-12) mmol/L BUN 25 H D (9-20) mg/dL Creatinine 2.11 H (0.7-1.3) mg/dL Estim Creat Clear Calc 30 ml/min Estimated GFR 30 L (59 - ) Glucose 102 (65-110) mg/dL Hemoglobin A1c 5.8 H (<5.7) % Calcium 9.1 (8.4-10.2) mg/dL Magnesium 2.3 Cancelled (1.6-2.3) mg/dL Total Bilirubin 0.5 (0.2-1.3) mg/dL AST 33 (17-59) U/L ALT 23 (6-50) U/L Alkaline Phosphatase 83 (38-126) U/L Total Protein 7.6 (6.3-8.2) g/dL Albumin 4.6 (3.5-5.1) g/dL Urine Color Yellow (Yellow) Urine Appearance Clear (Clear) Urine pH 7.0 (5.0-9.0) Ur Specific [place] 1.009 (1.001-1.035) Urine Protein Negative (Negative) mg/dL Urine Glucose (UA) Negative (Negative) mg/dL Urine Ketones Negative (Negative) mg/dL Ur Blood (Man) Negative (Negative) Urine Nitrate Negative (Negative) Urine Bilirubin Negative (Negative) Urine Urobilinogen 0.2 (<2.0) mg/dL Leukocyte Esterase Rfl Trace H (Negative) DEUCE/UL Urine RBC 0-2 (0-2) /hpf Urine WBC 0-5 (0-3) /hpf Ur Squamous Epith Cells None seen (Few) /hpf Urine Bacteria None seen /hpf Urine Casts 0-2 07/08/ Range/Units 21:19 WBC (4.5-10.0) K/mm3 RBC (4.6-6.20) M/mm3 Hgb (14.0-18.0) g/dL Hct (42.0-52.0) % MCV (80-100) fl MCH (26-34) pg MCHC (32-36) g/dl RDW (11.5-14.5) % Plt Count (150-375) k/mm3 MPV (7.4-10.4) fl Immature Gran % (Auto) (0-0.5) % Neut % (Auto) (45.5-73.1) % Lymph % (Auto) (18.3-44.2) % Gilliam % (Auto) (2.6-8.5) % Eos % (Auto) (0-4.4) % Baso % (Auto) (0.2-1.2) % Lymph # (Auto) (0.9-3.2) K/mm3 Gilliam # (Auto) (0.1-0.6) K/mm3 Eos # (Auto) (0-0.3) K/mm3 Baso # (Auto) (0.0-0.1) K/mm3 Abs Immat Gran (auto) (0.00-0.031) K/mm3 Absolute Neuts (auto) (1.3-6.7) K/mm3 Absolute Nucleated RBC (0.0-0.012) K/mm3 Nucleated RBC % (0.0-0.2) % Sodium 140 (137-145) mmol/L Potassium 4.3 (3.4-5.0) mmol/L Chloride 105 (98-107) mmol/L Carbon Dioxide 31 H (22-30) mmol/L Anion Gap 4 (4-12) mmol/L BUN 23 H (9-20) mg/dL Creatinine 2.01 H (0.7-1.3) mg/dL Estim Creat Clear Calc 31 ml/min Estimated GFR 32 L (59 - ) Glucose 101 (65-110) mg/dL Hemoglobin A1c (<5.7) % Calcium 8.8 (8.4-10.2) mg/dL Magnesium (1.6-2.3) mg/dL Total Bilirubin (0.2-1.3) mg/dL AST (17-59) U/L ALT (6-50) U/L Alkaline Phosphatase (38-126) U/L Total Protein (6.3-8.2) g/dL Albumin (3.5-5.1) g/dL Urine Color (Yellow) Urine Appearance (Clear) Urine pH (5.0-9.0) Ur Specific [place] (1.001-1.035) Urine Protein (Negative) mg/dL Urine Glucose (UA) (Negative) mg/dL Urine Ketones (Negative) mg/dL Ur Blood (Man) (Negative) Urine Nitrate (Negative) Urine Bilirubin (Negative) Urine Urobilinogen (<2.0) mg/dL Leukocyte Esterase Rfl (Negative) DEUCE/UL Urine RBC (0-2) /hpf Urine WBC (0-3) /hpf Ur Squamous Epith Cells (Few) /hpf Urine Bacteria /hpf Urine Casts <Eugenio Antony MD - Last Filed: 07/09/25 03:29> Discharge Plan Discharge Clinical Impression: Acute dehydration, Acute kidney injury <Silvia Hand PA-C - Last Filed: 07/10/25 17:09> Patient Disposition: Home <Silvia Hand PA-C - Last Filed: 07/10/25 17:09> Condition: Stable <ROAL Polo Last Filed: 07/10/25 17:09> Instructions: Antibiotic Form, Dehydration (DC) <ROLA Polo Last Filed: 07/10/25 17:09> Additional Instructions: Laboratory studies improved with fluids. Creatinine down to 2.01 from 2.41. No indications for hospitalization. Maintain hydration outside the hospital and follow up with regular doctors. Return with any emergent concerns. A1c 5.8 and still prediabetic. <Silvia Hand PA-C - Last Filed: 07/10/25 17:09> Patient Language: Arabic <ROLA Polo Last Filed: 07/10/25 17:09> Prescriptions: No Action cinnamon bark 500 mg capsule 500 mg PO DAILY Complete Multivitamin Tablet 1 tablet PO DAILY simvastatin 40 mg tablet 40 mg PO QHS glucosamine HCl 1 tablet PO DAILY cholecalciferol (vitamin D3) 125 mcg (5,000 unit) capsule 125 mcg PO DAILY melatonin 10 mg tablet 10 mg PO QHS fluticasone propionate [Flonase Allergy Relief] 50 mcg/actuation spray,suspension 2 spray intranasal DAILY Qty: 16 0RF Rx Instructions: administer into each nostril <ROLA Polo Last Filed: 07/10/25 17:09> Follow-up/Referrals: Waldemar Altamirano MD [Primary Care Provider, Family Practice] <Silvia Hand PA-C - Last Filed: 07/10/25 17:09> Time of Disposition: 22:17 <Silvia Hand PA-C - Last Filed: 07/10/25 17:09> 22:17 <Eugenio Antony MD - Last Filed: 07/09/25 03:29>
[2025-07-08 15:51] VITALS: BP 191/82; PULSE 72; RESP 18; TEMP 36.7
[2025-07-08 16:36] LABS: Hematocrit 36.5 % (42.0-52.0); Hemoglobin 12.0 g/dL (14.0-18.0); Immature Granulocyte Percent A 0.3 % (0-0.5); Lymphocytes Absolute Auto 1.03 K/mm3 (0.9-3.2); Mean Corpuscular HGB Conc 32.9 g/dl (32-36); Mean Corpuscular Hemoglobin 31.3 pg (26-34); Mean Corpuscular Volume 95.3 fl (80-100); Nucleated Red Blood Cells Absolute Auto 0.000 K/mm3 (0.0-0.012); Nucleated Red Blood Cells Perc 0.0 % (0.0-0.2); Platelet Count Result 184 k/mm3 (150-375); Red Blood Count 3.83 M/mm3 (4.6-6.20); White Blood Count 6.4 K/mm3 (4.5-10.0)
[2025-07-08 16:39] LABS: Add Urine Microscopic? YES; Appearance Urine Clear (Clear); Glucose Urine UA Negative (Negative); Leukocyte Esterase Ur Trace LEU/UL (Negative); Nitrate Urine Negative (Negative); Non Pathogenic Casts 0-2; Specific Grav Ur 1.009 (1.001-1.035)
[2025-07-08 16:49] LABS: Alanine Aminotransferase 23 U/L (6-50); Albumin Level 4.6 g/dL (3.5-5.1); Alkaline Phosphatase 83 U/L (38-126); Anion Gap 8 mmol/L (4-12); Aspartate Amino Transferase 33 U/L (17-59); Bilirubin,Total 0.5 mg/dL (0.2-1.3); Blood Urea Nitrogen 25 mg/dL (9-20); Calcium 9.1 mg/dL (8.4-10.2); Carbon Dioxide 29 mmol/L (22-30); Chloride 105 mmol/L (98-107); Estimated CRCL calculation 30 ml/min; Estimated Glomerular Filt Rate 30; Glucose 102 mg/dL (65-110); Magnesium 2.3 mg/dL (1.6-2.3); Potassium 4.5 mmol/L (3.4-5.0); Sodium 142 mmol/L (137-145); Total Protein 7.6 g/dL (6.3-8.2)
--- OUTSIDE RECORDS SUMMARY | 2025-07-08 17:14 | XMS_ITS | Clinical Summary ---
Author Organization [facility] Address [address] [place] [address] Care Team Providers Care City Wellness Coordinator Name Role Phone Marni Altamirano MD Primary Care Provider Source Comments [facility],non-owned Affiliates and Associated Physician Practices is amultiple site organization consisting of ambulatory clinics and hospital sitesin [place], [place] and [place]. This disclosure is being madepursuant to the Care Everywhere program and may not contain all information available regarding this patient. Last updated 18.[facility] Allergies No known active allergies Medications * Be aware that medications may not be up to date on this document. Alwaysverify current medications with the patient. ibuprofen (Motrin) 600 MG tablet Take 1 [...] Recorded Sex Assigned at Not on file Legal Sex Male 12:29 PM CDT Gender Identity Not on file Sexual Orientation Not on file Plan of Treatment Health Maintenance Due Date Last Done Comments MEDICARE AWV 12 MONTHS 1944 DTAP/TDAP/TD VACCINES (1 - Tdap) 1963 PNEUMOCOCCAL VACCINE 50+ (1 of 1 - PCV) 1994 ZOSTER VACCINE (1 of 2) 1994 Respiratory Syncytial Virus (RSV) Vaccine Pt: or over 60 yrs (1 - 1-dose 75+ series) 2019 DEPRESSION SCREENING 08/14/2024 07/01/2024 COVID-19 VACCINE (2 - 2024- season) 2025 10/12/2020 INFLUENZA VACCINE (#1) 2025 , 06/08/2018, 06/19/2017, Additional history exists HEPATITIS B VACCINE [...] on patient's age to complete this topic Insurance MEDICARE PENDING SALE TO [facility] Care Teams City Wellness Coordinator Relationship Specialty Start Date End Date Marni Altamirano MD [id number] [place] [id number] PCP - General Family Medicine 07/01/24
[2025-07-08 18:21] VITALS: BP 187/88; PULSE 73; RESP 20; O2SAT 100
[2025-07-08 18:22] VITALS: BP 187/88; PULSE 73; RESP 20; O2SAT 100
[2025-07-08 18:31] VITALS: BP 176/81; PULSE 73; RESP 16; O2SAT 100
[2025-07-08 18:35] VITALS: PULSE 71
[2025-07-08 19:01] VITALS: BP 170/72; PULSE 72; RESP 17; O2SAT 100
[2025-07-08] MEDS: LACTATED RINGERS 1,000 ML 999 ML IV CONT ×2 (19:37)
[2025-07-08 21:09] LABS: Hemoglobin A1C 5.8 % (<5.7)
[2025-07-08 21:56] LABS: Anion Gap 4 mmol/L (4-12); Blood Urea Nitrogen 23 mg/dL (9-20); Calcium 8.8 mg/dL (8.4-10.2); Carbon Dioxide 31 mmol/L (22-30); Chloride 105 mmol/L (98-107); Estimated CRCL calculation 31 ml/min; Estimated Glomerular Filt Rate 32; Glucose 101 mg/dL (65-110); Potassium 4.3 mmol/L (3.4-5.0); Sodium 140 mmol/L (137-145)
== END 2025-07-08 22:44 | disposition home or self-care (01) ==
PROVIDERS: Physician Assistant; Emergency Provider Student in an Organized Health Care Education/Training Program; PCP Family Medicine
DX: E86.0 Dehydration (principal); N17.9 Acute kidney failure, unspecified; R73.03 Prediabetes; I87.2 Venous insufficiency (chronic) (peripheral); E78.5 Hyperlipidemia, unspecified; J61 Pneumoconiosis due to asbestos and other mineral fibers; K21.9 Gastro-esophageal reflux disease without esophagitis; G47.33 Obstructive sleep apnea (adult) (pediatric); Z98.41 Cataract extraction status, right eye; Z98.42 Cataract extraction status, left eye; Z79.899 Other long term (current) drug therapy
CPT/HCPCS: 36415; 80048; 80053; 81001; 83036; 83735; 85025; 96360; 99284; J7120

== ENCOUNTER 2025-07-16 10:28 | Outpatient (CLI) | payer MEDICARE, SELFPAY ==
--- OUTSIDE RECORDS SUMMARY | 2025-07-16 11:53 | XMS_ITS | Clinical Summary ---
Author Organization [facility] Address [address] [address] Care Team Providers Care [employer] Name Role Phone Marni Altamirano MD Primary Care Provider Source Comments [facility],non-owned Affiliates and Associated Physician Practices is amultiple site organization consisting of ambulatory clinics and hospital sitesin [place], [place], [place] and [place]. This disclosure is being madepursuant to the Care Everywhere program and may not contain all information available regarding this patient. Last updated 18.[facility] Allergies No known active allergies Medications * [...] age to complete this topic Insurance MEDICARE [facility] Care Teams [employer] Relationship Specialty Start Date End Date Marni Altamirano MD [address] [place] [id number] PCP - General Family Medicine 07/01/24
[2025-07-16 18:52] LABS: Hematocrit 36.0 % (42.0-52.0); Hemoglobin 11.7 g/dL (14.0-18.0); Immature Granulocyte Percent A 0.4 % (0-0.5); Lymphocytes Absolute Auto 1.01 K/mm3 (0.9-3.2); Mean Corpuscular HGB Conc 32.5 g/dl (32-36); Mean Corpuscular Hemoglobin 31.1 pg (26-34); Mean Corpuscular Volume 95.7 fl (80-100); Nucleated Red Blood Cells Absolute Auto 0.000 K/mm3 (0.0-0.012); Nucleated Red Blood Cells Perc 0.0 % (0.0-0.2); Platelet Count Result 180 k/mm3 (150-375); Red Blood Count 3.76 M/mm3 (4.6-6.20); White Blood Count 7.3 K/mm3 (4.5-10.0)
[2025-07-16 18:53] LABS: Iron 91 ug/dL (49-181)
[2025-07-16 19:14] LABS: Percent Iron Saturation 33 % (20-50)
[2025-07-16 19:34] LABS: Vitamin B12 535.0 pg/mL (239-931)
[2025-07-16 19:36] LABS: Ferritin 147.00 ng/mL (11.1-264)
[2025-07-17 12:56] LABS: Alanine Aminotransferase 34 U/L (6-50); Albumin Level 4.4 g/dL (3.5-5.1); Alkaline Phosphatase 92 U/L (38-126); Anion Gap 9 mmol/L (4-12); Aspartate Amino Transferase 37 U/L (17-59); Bilirubin,Total 0.4 mg/dL (0.2-1.3); Blood Urea Nitrogen 30 mg/dL (9-20); Calcium 9.8 mg/dL (8.4-10.2); Carbon Dioxide 26 mmol/L (22-30); Chloride 107 mmol/L (98-107); Estimated Glomerular Filt Rate 29; Glucose 91 mg/dL (65-110); Potassium 4.7 mmol/L (3.4-5.0); Sodium 142 mmol/L (137-145); Total Protein 7.2 g/dL (6.3-8.2)
[2025-07-17 13:23] LABS: Thyroid Stimulating Hormone Reflex 2.620 uIU/mL (0.465-4.68)
== END 2025-07-16 10:29 | disposition home or self-care (01) ==
LOC: ANHGOSHLAB 10:29
PROVIDERS: PCP Family Medicine; Visit Provider Nurse Practitioner Family
DX: D64.9 Anemia, unspecified (principal); I10 Essential (primary) hypertension
CPT/HCPCS: 36415; 80053; 82607; 82728; 83540; 83550; 84443; 85025